=== PATIENT | female | born 1975 | race Caucasian/White ===

== ENCOUNTER 2019-03-30 14:54 | Emergency (ER) | payer MEDICARE, MEDICAID ==
--- NOTE | 2019-03-30 20:00 | RAD ---
RIGHT FOOT THREE VIEWS 03/30/19 No acute fracture was seen. There may be an old injury to the base of the fifth metatarsal that is we ll healed. A calcaneal spur is present. There is no periosteal reaction. IMPRESSION: No acute bony finding. POS: HOME
== END 2019-03-30 15:34 | disposition home or self-care (01) ==
LOC: BURERS 14:54
DX: S90.111A Contusion of right great toe without damage to nail, initial encounter (principal); F32.9 Major depressive disorder, single episode, unspecified; W22.8XXA Striking against or struck by other objects, initial encounter

== ENCOUNTER 2020-03-02 10:06 | Emergency (ER) | payer MEDICARE, MEDICAID ==
[2020-03-02] MEDS ORDERED: Ketorolac Tromethamine 30 MG/ML VIAL ONE (10:21)
[2020-03-02] MEDS ORDERED: Morphine 4 MG/ML VIAL ONE (11:10)
--- NOTE | 2020-03-02 22:01 | RAD ---
LUMBAR SPINE THREE VIEWS: 03/02/20 Since prior exams, the posterior lumbar fusion has been removed in the lower lumbar spine. Synthetic discs remain at L4-L5 and L5-S1. One of the pedicle screws in the right side of S1 remains embedded i n the bone. No acute fracture was seen. The disc spaces elsewhere were unremarkable. The SI joints ar e symmetrical. IMPRESSION: No acute bony findings. POS: HOME
--- NOTE | 2020-03-02 22:06 | RAD ---
PELVIS ONE VIEW: 03/02/20 No fracture was detected. The bony pelvis appears intact. The symphysis shows no widening or offset a nd the SI joints are symmetrical. The arcuate lines of the sacrum appear intact. The hip joints are s ymmetrical. A metallic density is seen overlying the upper right sacrum which is probably of no curre nt concern. IMPRESSION: No acute bony finding. POS: HOME
== END 2020-03-02 11:19 | disposition home or self-care (01) ==
LOC: BURERS 10:06
DX: S20.219A Contusion of unspecified front wall of thorax, initial encounter (principal); M54.5 Low back pain; M79.622 Pain in left upper arm; M25.512 Pain in left shoulder; M53.3 Sacrococcygeal disorders, not elsewhere classified; G89.29 Other chronic pain; M79.7 Fibromyalgia; F32.9 Major depressive disorder, single episode, unspecified; F17.210 Nicotine dependence, cigarettes, uncomplicated; W01.0XXA Fall on same level from slipping, tripping and stumbling without subsequent striking against object, initial encounter; Y92.091 Bathroom in other non-institutional residence as the place of occurrence of the external cause
CPT/HCPCS: 72100; 72170; 96372; J1885; J2270

== ENCOUNTER 2020-10-20 10:15 | Emergency (ER) | payer MEDICARE, MEDICAID ==
[2020-10-20 11:00] LABS: Bilirubin Negative (Negative); Blood, Urine Negative (Negative); Clarity Clear (Clear); Glucose, Urine (Dipstick) Negative (Negative); Ketone, Urine Negative (Negative); Leukocyte Negative (Negative); Nitrite Negative (Negative); Protein, Urine (Dipstick) Negative (Neg-Trace); Specific Gravity, Urine 1.015 (1.005-1.030); Urobilinogen 0.2 mg/dL (Less than 2); pH, Urine 6.5 (5.0-9.0)
[2020-10-21 02:34] LABS: SARS-CoV-2 PCR by NAA Not Detected (NotDetected)
== END 2020-10-20 11:10 | disposition home or self-care (01) ==
LOC: BURERS 10:15
DX: R50.9 Fever, unspecified (principal); R10.11 Right upper quadrant pain; R33.9 Retention of urine, unspecified; R05 Cough; M79.10 Myalgia, unspecified site; F17.210 Nicotine dependence, cigarettes, uncomplicated; Z20.822 Contact with and (suspected) exposure to COVID-19
CPT/HCPCS: 81003; 87635; 99283; U0003; U0005

== ENCOUNTER 2023-05-20 11:00 | Emergency (ER) | payer MEDICARE, MEDICAID ==
[2023-05-20] MEDS ORDERED: Sterile Water 10 ML ONE (11:42)
[2023-05-20] MEDS ORDERED: HYDROmorphone 0.5 MG/0.5 ML SYRINGE ONE (11:42)
[2023-05-20] MEDS ORDERED: cefTRIAXone (ROCEPHIN) 1 GM VIAL ONE (11:42)
== END 2023-05-20 12:20 | disposition home or self-care (01) ==
LOC: BURERS 11:00
DX: R59.0 Localized enlarged lymph nodes (principal); F17.210 Nicotine dependence, cigarettes, uncomplicated; M79.7 Fibromyalgia; Z79.899 Other long term (current) drug therapy
CPT/HCPCS: 96372; 99282; J0696; J1170

== ENCOUNTER 2024-10-20 12:53 | Emergency (ER) | payer MEDICARE, OTHER ==
[2024-10-20] MEDS ORDERED: methylPREDNISolone Sod Succ/PF 125 MG/2 ML VIAL ONE (13:16)
[2024-10-20] MEDS ORDERED: HYDROmorphone 0.5 MG/0.5 ML SYRINGE ONE (13:16)
== END 2024-10-20 13:30 | disposition home or self-care (01) ==
LOC: BURERS 12:53
DX: M54.50 Low back pain, unspecified (principal); F17.210 Nicotine dependence, cigarettes, uncomplicated
CPT/HCPCS: 96372; 99283; J1171; J2919